=== PATIENT | female | born 1990 ===

== ENCOUNTER 2024-06-10 12:38 | Emergency (ER) | payer OTHER, SELFPAY ==
--- NOTE | 2024-06-10 13:11 | ED_ITS ---
HPI - General Adult General Chief complaint: General Medical Stated complaint: Wants to confirm Time Seen by Provider: 06/10/24 12:54 Source: patient Mode of arrival: ambulatory Limitations: no limitations History of Present Illness ED Provider: Flynn MCWILLIAMS HPI narrative: This is a 34-year-old female presenting to the emergency department requesting a test, she had a positive at home ( had a normal [place] and urine test in [place]) and would like to see if it is still postive she thinks shes around 14 weeks. Last menstrual period March 02 2024. Taking vitamins. Reports last week had faint spotting. Denies fevers, chills, chest pain, shortness of breath, nausea, vomiting, abdominal pain, abdominal trauma, vaginal bleeding at this time. Related Data Allergies Allergy/AdvReac Type Severity Reaction Status Date / Time No Known Allergies Allergy Verified 06/10/24 13:23 Review of Systems 2 Review of Systems: Yes all other systems are reviewed and are negative [facility] Past Medical History Attestation statement: The following information was validated with the patient. Source: old records reviewed and nursing notes reviewed Social History Social History Advance Directives: No Do you have a plan to hurt others: No Plan Physical Exam ED Vital Signs: Vital Signs - 24 hr 06/10/24 13:21 Temperature 98.0 F Pulse Rate 110 H Respiratory Rate 18 Blood Pressure 150/98 H Pulse Oximetry 98 Oxygen Delivery Method Room Air BMI result Body Mass Index 44.9 vss Appearance: Alert.? Oriented X3.? No acute distress.? Head: Normocephalic, atraumatic, no step-offs or deformities Eyes: Pupils equal, round and reactive to light.? CVS: Normal heart rate and rhythm.? Pulses normal.? Respiratory: No respiratory distress.? Breath sounds normal.? Abdomen: Soft and nontender.? Skin: Skin warm and dry.? Normal skin color.? Normal skin turgor.? Extremities: No lower extremity edema.? No calf ttp. 5/5 strength to bilateral upper and lower extremities Neuro: Oriented X 3.? No motor deficit.? No sensory deficit. Course Reevaluation(s) Reevaluation #1: hCG within appropriate range. No abd pain or ttp. No bleeding att. No indication for emergent imaging. To be seen by OBGYN. Time: 15:22 Medical Decision Making Medical Decision Making [facility] Narrative: 1311 34-year-old female presents to the emergency room wanting to confirm . Physical exam benign History and physical exam concerning for . Unlikely metabolic derangements. No bleeding or pain at this time low suspicion for miscarriage. Plan basic labs, hCG Differential Diagnosis Differential Diagnoses: The differential diagnosis associated with the presentation includes History and physical exam concerning for . Unlikely metabolic derangements. No bleeding or pain at this time low suspicion for miscarriage Admission/Observation Consideration of admission/observation: Escalation of care including admission/observation considered Lab Data [facility] Lab Attestation statement: I reviewed the patient's lab results. 06/10/24 13:37 06/10/24 13:37 Labs: Lab Results 06/10/24 Range/Units 13:37 WBC 8.5 (4.8-10.8) X10*3/uL RBC 4.93 (4.20-5.50) X10*6/uL Hgb 13.4 (12.0-16.0) g/dl Hct 39.9 (37.0-47.0) % MCV 80.9 (80.0-98.0) fL MCH 27.2 (27.0-33.0) pg MCHC 33.6 (31.0-35.0) g/dl RDW 13.3 (11.0-16.0) % Plt Count 298 (160-400) X10*3/uL MPV 10.8 (9.4-12.3) fL Immature Gran % (Auto) 0.5 H (0.0-0.4) % Neut % (Auto) 66.8 (45-73) % Lymph % (Auto) 20.6 (20-40) % [place] % (Auto) 8.8 (2-11) % Eos % (Auto) 2.8 (0-4) % Baso % (Auto) 0.5 (0-2) % Lymph # (Auto) 1.8 (1.2-4.9) X10*3/uL [place] # (Auto) 0.8 (0.1-1.2) X10*3/uL Eos # (Auto) 0.2 (0.0-0.4) X10*3/uL Baso # (Auto) 0.0 (0.0-0.2) X10*3/uL Abs Immat Gran (auto) 0.04 H (0.00-0.03) X10*3/uL Absolute Neuts (auto) 5.7 (2.0-8.3) x10*3/uL Absolute Nucleated RBC 0.000 (0.0-0.012) X10*3/uL Nucleated RBC % (auto) 0.0 (0.0-0.2) /100WBC Sodium 137 (135-145) mmol/L Potassium 3.9 (3.3-5.1) mmol/L Chloride 106 (96-108) mmol/L Carbon Dioxide 23 (22-29) mmol/L Anion Gap 12 (12-20) BUN 7 L (9-16) mg/dL Creatinine 0.79 (0.5-1.4) mg/dL Estim Creat Clear Calc 121.5 Estimated GFR > 60 Random Glucose 94 (60-115) mg/dL Calcium 10.0 (8.4-10.2) mg/dL Total Bilirubin 0.2 (0.0-1.0) mg/dL AST 20 (5-31) U/L ALT 54 H (0-31) U/L Alkaline Phosphatase 74 (39-117) U/L Total Protein 7.1 (6.5-8.0) g/dL Albumin 4.0 (3.5-5.0) g/dL Beta HCG, Quant 40558 mIU/mL Critical Care Time Critical Care Time Critical Care Time: No Discharge Plan Discharge Clinical Impression: Encounter for test, result positive Patient Disposition: Home, Self-Care Instructions: (ED) Additional Instructions: Take your medications as prescribed. If you were prescribed antibiotics today, it is important that you take your medication to their entirety, do not skip any doses, do not finish them early. Follow-up with your primary care provider this week. Return to the emergency department with new or worsening symptoms. In case of emergency call 911 You need to follow-up with a PCP as soon as possible. Start taking vitamins every day. You can purchase these [id number]. If you are in pain you should only take Tylenol no ibuprofen. You experience pain or vaginal bleeding should come to the emergency department. Referrals: Physician,None [Primary Care Provider] - 2 days Print Language: Lithuanian
[2024-06-10 13:21] VITALS: BP 150/98; PULSE 110; RESP 18; TEMP 36.7; O2SAT 98; BMI 44.9
[2024-06-10 13:52] LABS: MANUAL DIFF FLAG NO
[2024-06-10 13:54] LABS: Basophils Percent Auto 0.5 % (0-2); Eosinophils Absolute Auto 0.2 X10*3/uL (0.0-0.4); Eosinophils Percent Auto 2.8 % (0-4); Hematocrit 39.9 % (37.0-47.0); Hemoglobin 13.4 g/dl (12.0-16.0); Imm Gran Abs Auto 0.04 X10*3/uL (0.00-0.03); Imm Gran Pct Auto 0.5 % (0.0-0.4); Lymphocytes Absolute Auto 1.8 X10*3/uL (1.2-4.9); Lymphocytes Percent Auto 20.6 % (20-40); Mean Corpuscular HGB Conc 33.6 g/dl (31.0-35.0); Mean Corpuscular Hemoglobin 27.2 pg (27.0-33.0); Mean Corpuscular Volume 80.9 fL (80.0-98.0); Mean Platelet Volume 10.8 fL (9.4-12.3); Monocytes Absolute Auto 0.8 X10*3/uL (0.1-1.2); Monocytes Percent Auto 8.8 % (2-11); Neutrophils Absolute Auto 5.7 x10*3/uL (2.0-8.3); Neutrophils Percent Auto 66.8 % (45-73); Platelet Count 298 X10*3/uL (160-400); Red Blood Count 4.93 X10*6/uL (4.20-5.50); Red Cell Distribution Width 13.3 % (11.0-16.0); White Blood Count 8.5 X10*3/uL (4.8-10.8)
[2024-06-10 14:21] LABS: Alanine Aminotransferase 54 U/L (0-31); Alkaline Phosphatase 74 U/L (39-117); Anion Gap 12 (12-20); Aspartate Amino Transferase 20 U/L (5-31); Bilirubin Total 0.2 mg/dL (0.0-1.0); Blood Urea Nitrogen 7 mg/dL (9-16); Carbon Dioxide 23 mmol/L (22-29); Chloride 106 mmol/L (96-108); Creatinine Clr Calc Pharmacy 121.5; Estimated Glomerular Filt Rate > 60; Glucose Random 94 mg/dL (60-115); Potassium 3.9 mmol/L (3.3-5.1); Sodium 137 mmol/L (135-145); Total Protein 7.1 g/dL (6.5-8.0)
[2024-06-10 15:27] VITALS: BP 150/98; PULSE 110; RESP 18; TEMP 36.7; O2SAT 98
== END 2024-06-10 15:28 | disposition home or self-care (01) ==
PROVIDERS: Physician Assistant; Emergency Provider Emergency Medicine Emergency Medical Services
DX: Z32.01 Encounter for pregnancy test, result positive (principal)
CPT/HCPCS: 36415; 80053; 84702; 85025; 99282; 99283

== ENCOUNTER 2024-06-13 10:21 | Outpatient (AMB) | payer OTHER, SELFPAY ==
--- NOTE | 2024-06-13 11:00 | AM.OFFWIN_ITS ---
Intake Vital Signs 06/13/24 11:02 Height 5 ft 3 in Weight 254 lb BMI 45.0 Intake Visit Reasons: EP Referral? (can't see pcp yet) Intake Note: Patient here Allergies No Known Allergies Allergy (Verified 06/10/24 13:23) HPI HPI Comments History of Present Illness Details 34 y/o female patient who [facility] with c/o lower pelvic and abdominal cramping for few days now. Pt is 15 weeks and has not received any prenetal care. Pt asking for [facility] referral today. Review of Systems Const All systems reviewed & are unremarkable except as noted in HPI and below Physical Exam Vital Signs: BMI result Body Mass Index 45.0 Const Orientation/consciousness: patient oriented x3 Resp Effort & Inspection: normal respiratory effort Auscultation: clear to auscultation bilaterally Cardio Heart sounds: S1 normal heart sound present and S2 normal heart sound present Skin General skin exam: no rashes or lesions noted Neuro General: patient oriented x3, gait normal and moves all extremities Psych Speech and movement: Normal speech and movement present Assessment & Plan Assessment & Plan (1) Bilateral lower abdominal cramping: Code(s): R10.31 - Right lower quadrant pain; R10.32 - Left lower quadrant pain Plan: Advised Pt to go [facility] clinic for further evaluation since she is and has not receive any care. Pt agreed, and will have drive her there today. (2) : Code(s): Z34.90 - Encounter for supervision of normal , unspecified, unspecified trimester Qualifiers: Weeks of gestation: 15 weeks Qualified Code(s): Z3A.15 - 15 weeks gestation of Plan: Advised Pt to go [facility] clinic for further evaluation since she is and has not receive any care. Pt agreed, and will have drive her there today. Coding Level of Care Code Est Pt Level 3 (93740) Diagnoses Bilateral lower abdominal cramping R10.31; R10.32 15 weeks gestation of Z3A.15 Weeks of gestation: 15 weeks Time Spent (min) 15
[2024-06-13 11:02] VITALS: BMI 45.0
== END 2024-06-13 11:22 | disposition home or self-care (01) ==
PROVIDERS: Visit Provider Nurse Practitioner Family
DX: R10.31 Right lower quadrant pain (principal); R10.32 Left lower quadrant pain; Z3A.15 15 weeks gestation of pregnancy
CPT/HCPCS: 99051; 99213

== ENCOUNTER 2024-06-19 15:54 | Outpatient (AMB) | payer OTHER, SELFPAY ==
[2024-06-19 15:56] VITALS: BP 144/90; PULSE 118; O2SAT 98; BMI 44.8
--- NOTE | 2024-06-19 15:56 | A.OFFPC_ITS ---
Vital Signs 06/19/24 15:56 Height 5 ft 3 in Weight 253 lb BMI 44.8 BP 144/90 H Blood Pressure Location Lt brachial Position Sitting Pulse 118 H Pulse Source Pulse Oximeter Pulse Oximetry (%) 98 Oxygen Delivery Method Room Air Intake Visit Reasons: requesting obgyn referral 20 weeks Intake Note: Pt doesn't have any anxiety medications with her because she just moved here from [place] due to her being in the . Night Guard Required: No Accompanied by: Self / Same As Patient Allergies No Known Allergies Allergy (Verified 06/19/24 16:12) Medication List - Last Reconciled 06/19/24 by Audrey Olivas PA-C [id number] 3-fat com #1 27-1-300 mg caps PO Tobacco use date assessed: 06/19/24 Dental Screening Dental Screen Date: 06/19/24 Did you have a dental visit in the last 12 months?: Yes Did you have a dental problem in the last 6 months where you did not have access to dental care?: No Was dental information given to patient?: Patient has dentist HPI requesting obgyn referral 20 weeks HPI Details 34-year-old female with no past medical history coming to the office for the 1st time. Patient recently moved here from [place] and is establishing care in our office and is looking to establish care with a power cleaner operator as well. She does have an appointment with [facility] gynecology nex t week to establish care. Today she tells us previously she was on hydralazine was being treated for hypertension while in [place] but has been without her medications for several weeks now. She has always had an issue with elevated blood pressure with no identifiable cause. She is 16 weeks and has no concerns with the at this time. She has been dealing with morning sickness with nausea and vomiting but no other concerns. [facility] Surgical History S/P tonsillectomy H/O knee surgery Family History Other Mental health disorder Social History Housing: Other Housing Other:: Hotel Patient Tobacco Use Status: Never used Tobacco Tobacco use type: Cigarette e-Cigarette/Vaping Use: Never Used Second Hand Smoke Exposure: Yes service: No Current occupational status: unemployed Cognitive needs: No Hearing needs: No Vision needs: Yes Female Reproductive History Menstrual Total pregnancies: 1 Questionnaire PHQ-9 Over the last 2 weeks, how often have you been bothered by any of the following problems? 1. Little interest or pleasure in doing things: not at all 2. Feeling down, depressed, or hopeless: not at all 3. Trouble falling or staying asleep, or sleeping too much: not at all 4. Feeling tired or having little energy: not at all 5. Poor appetite or overeating: not at all 6. Feeling bad about yourself - or that you are a failure or have let yourself or your family down: not at all 7. Trouble concentrating on things, such as reading the newspaper or watching television: not at all 8. Moving or speaking so slowly that other people could have noticed. Or the opposite - being so fidgety or restless that you have been moving around a lot more than usual: not at all 9. Thoughts that you would be better off or of hurting yourself in some way: not at all Total score: 0 Depression Screening Interpretation: Negative Depression Screening Done: Yes Source: Developed by Drs. Kaushik Pina, Phyllis Lilly, Andres Chinchilla and colleagues, with an educational leanna from [employer]. Thrive Questionnaire Date Thrive assessed: 06/19/24 I am a: Patient What is your living situation today?: I do not have a steady places to live (New to the area) I am staying at a hotel Are you currently unemployed and looking for a job?: Yes THRIVE Score: 1 AUDIT C Alcohol Use Questionnaire (AUDIT-C) 1. How often do you have a drink containing alcohol?: Never 3. How often do you have six or more drinks on one occasion?: Never Total Score: 0 CARLOS-7 AMB Questionnaire CARLOS-7 Date CARLOS - 7 assessed: 06/19/24 Feeling nervous, anxious, or on edge: 1 = Several days (Stressed) Not being able to stop or control worryin = Not at all Worrying too much about different things: 0 = Not at all Trouble relaxin = Not at all Being so restless that it is hard to sit still: 0 = Not at all Becoming easily annoyed or irritable: 0 = Not at all Feeling afraid as if something awful might happen: 0 = Not at all Total CARLOS-7 score (0-4 normal; 5-9 mild; 10-14 moderate; 15-21 severe): 1 Source: Developed by Drs. Kaushik Pina, Phyllis Lilly, Andres Chinchilla and colleagues, with an educational leanna from [employer]. Review of Systems Const Denies body aches, Denies fatigue, Denies fever(s), Denies frequent falls, Denies headache(s) and Denies weakness Eyes Reports no additional complaints and Denies change in vision ENT Denies dysphagia, Denies dizziness, Denies facial pain, Denies headache(s), Denies nasal congestion and Denies odynophagia Card Denies chest pain, Denies syncope, Denies irregular heart rhythm, Denies leg edema, Denies lightheadedness and Denies dyspnea Resp Denies cough and Denies dyspnea GI Denies abdominal pain, Denies constipation, Denies dysphagia, Denies dyspepsia, Denies diarrhea, Reports nausea, Denies odynophagia and Reports vomiting Denies urinary frequency, Denies dysuria, Denies urinary hesitancy and Denies urinary urgency Musc Denies back pain and Denies myalgias Skin/Breast Reports system reviewed and no additional complaints, except as documented Neuro Denies dizziness, Denies syncope, Denies frequent falls, Denies headache(s) and Denies weakness Psych Reports no additional complaints Endo Denies fatigue Physical exam (Primary Care) Vital Signs: Last Vital Signs Pulse 118 H 06/19/24 15:56 BP 144/90 H 06/19/24 15:56 Pulse Ox 98 06/19/24 15:56 Oxygen Delivery Method Room Air 06/19/24 15:56 BMI result Body Mass Index 44.8 Tobacco/Smoking Status: Tobacco use Status Tobacco use date assessed 06/19/24 06/19/24 16:06 Patient Tobacco Use Status Never used Tobacco 06/19/24 16:06 Tobacco use type Cigarette 06/19/24 16:06 e-Cigarette/Vaping Use Never Used 06/19/24 16:06 PHQ-9: PHQ-9 Score PHQ-9: Total score 0 06/19/24 16:11 Depression Screening Interpretation: Negative Thrive Assessment: Date of Thrive Assessment Date Thrive assessed 06/19/24 06/19/24 16:06 Const General: cooperative, healthy appearing, comfortable and no acute distress Orientation/consciousness: patient oriented x3 HENMT Head: Yes normocephalic Ears: hearing grossly normal bilaterally General nose exam: Normal external nose present Eyes General: appearance normal, both eyes and all related structures Conjunctivae: conjunctivae normal Neck Neck: Yes full ROM and Yes no lymphadenopathy Resp Effort & Inspection: normal respiratory effort Auscultation: clear to auscultation bilaterally, no crackles, no rales, no rhonchi and no wheezes Cardio Rate: regular rate Rhythm: regular rhythm Skin General skin exam: no rashes or lesions noted Neuro General: patient oriented x3 Gait exam (Neuro): Normal gait present Extrem General: Yes normal to inspection, Yes full ROM and No edema Psych Affect: normal affect Attitude: cooperative Insight: Good insight present (Psych) Judgement: Good judgement present (Psych) Assessment and Plan Assessment & Plan (1) and not yet delivered: Code(s): Z34.90 - Encounter for supervision of normal , unspecified, unspecified trimester Plan: Advised patient to follow up with [facility] Gynecology as soon as possible to establish care. She did have a routine ultrasound at 9 weeks while in [place] and we do not have these results. (2) PCOS (polycystic ovarian syndrome): Code(s): E28.2 - Polycystic ovarian syndrome Plan: Continue to follow with gynecology. (3) Hypertension: Code(s): I10 - Essential (primary) hypertension Plan: Patient has history of hypertension was previously being treated with hydralazine 10 mg. Hypertensive while in the office today 144/90 and 140/90 when retaken. Prescription for hydralazine 10 mg sent as this is a safe medication during . We will defer to gynecology for further management throughout her once she has established care. Follow up in 3 weeks for blood pressure check. (4) Anxiety: Code(s): F41.9 - Anxiety disorder, unspecified Plan: Has a history of anxiety and was previously treated with fluoxetine but would like to discontinue this medication during the . Advised patient counseling but has declined at this time. Plan This note was constructed using voice recognition software. While every effort has been made to ensure accuracy and sub acute care nurse, still areas may have been included sometimes these areas may affect the content or meeting of the given symptoms. Total time spent caring for the patient today was 30 minutes. This includes time spent before the visit reviewing the chart, time spent during the visit, and time spent after the visit and documentation. Orders: Referrals NIB FINISHER Referral Z34.90 - Encounter for supervision of normal , unspecified, unspecified trimester Medications: New hydralazine 10 mg PO ONCE 30 tabs 2RF Coding Level of Care Code New Pt Level 4 (73258) Diagnoses and not yet delivered Z34.90 PCOS (polycystic ovarian syndrome) E28.2 Hypertension I10 Anxiety F41.9
== END 2024-06-19 16:39 | disposition home or self-care (01) ==
DX: Z34.90 Encounter for supervision of normal pregnancy, unspecified, unspecified trimester (principal); E28.2 Polycystic ovarian syndrome; I10 Essential (primary) hypertension; F41.9 Anxiety disorder, unspecified

== ENCOUNTER → 2024-06-19 15:54 | Outpatient (BNVA) | payer OTHER, SELFPAY | DX: O16.2 Unspecified maternal hypertension, second trimester (principal); Z3A.20 20 weeks gestation of pregnancy; O26.892 Other specified pregnancy related conditions, second trimester; E28.2 Polycystic ovarian syndrome; F41.9 Anxiety disorder, unspecified | CPT/HCPCS: 99202 ==

== ENCOUNTER 2024-07-10 14:50 | Outpatient (AMB) | payer OTHER, SELFPAY ==
[2024-07-10 14:51] VITALS: BP 154/98; PULSE 116; O2SAT 98; BMI 44.3
--- NOTE | 2024-07-10 14:51 | A.OFFPC_ITS ---
Vital Signs 07/10/24 14:51 Height 5 ft 3 in Weight 250 lb BMI 44.3 BP 154/98 H Blood Pressure Location Lt brachial Position Sitting Pulse 116 H Pulse Source Pulse Oximeter Pulse Oximetry (%) 98 Oxygen Delivery Method Room Air Intake Visit Reasons: Physical Exam Intake Note: Patient is here today for a physical. 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 Allergies No Known Allergies Allergy (Verified 07/10/24 15:07) Medication List - Last Reconciled 07/10/24 by Audrey Olivas PA-C fluoxetine 10 mg PO DAILY nifedipine ER 30 mg PO DAILY ondansetron 4 mg PO Q8H [id number] 3-fat com #1 27-1-300 mg caps PO Tobacco use date assessed: 06/19/24 Dental Screening Dental Screen Date: 06/19/24 Did you have a dental visit in the last 12 months?: Yes Did you have a dental problem in the last 6 months where you did not have access to dental care?: No Was dental information given to patient?: Patient has dentist HPI Physical Exam HPI Details 34 year old female with past history of PCOS, anxiety and hypertension last seen May 2024 coming in for annual exam. Patient is 19 weeks and following with [facility]. She has been following with [facility] who recently changed her blood pressure medication to nifedipine and has been using baby scripts to monitor her blood pressure. All values have been normal and has had several telehealth with her OB to address these blood pressures. She has a appointment next week for her 20 week ultrasound. She has been having issues with nausea and vomiting and was given Zofran by OB. She has no other concerns today. [facility] Surgical History S/P tonsillectomy H/O knee surgery Family History Other Mental health disorder Social History Housing: Other Housing Other:: Hotel Patient Tobacco Use Status: Never used Tobacco Tobacco use type: Cigarette e-Cigarette/Vaping Use: Never Used Second Hand Smoke Exposure: Yes service: No Current occupational status: unemployed Cognitive needs: No Hearing needs: No Vision needs: Yes Questionnaire PHQ-9 Over the last 2 weeks, how often have you been bothered by any of the following problems? 1. Little interest or pleasure in doing things: not at all 2. Feeling down, depressed, or hopeless: not at all 3. Trouble falling or staying asleep, or sleeping too much: several days 4. Feeling tired or having little energy: several days 5. Poor appetite or overeating: several days 6. Feeling bad about yourself - or that you are a failure or have let yourself or your family down: not at all 7. Trouble concentrating on things, such as reading the newspaper or watching television: not at all 8. Moving or speaking so slowly that other people could have noticed. Or the opposite - being so fidgety or restless that you have been moving around a lot more than usual: not at all 9. Thoughts that you would be better off or of hurting yourself in some way: not at all Total score: 3 Depression Screening Interpretation: Negative Depression Screening Done: Yes 79939 - PHQ-9 Billing: Yes Source: Developed by Drs. Kaushik Pina, Phyllis Lilly, Andres Chinchilla and colleagues, with an educational leanna from [employer]. Thrive Questionnaire Date Thrive assessed: 06/19/24 I am a: Patient What is your living situation today?: I choose not to answer this question Within the past 12 months, did the food you bought not last and you didn't have the money to get more?: Never true Within the past 12 months, did you worry whether your food would run out before you got money to buy more?: Never true Do you have trouble paying for medicines?: No Do you have trouble getting transportation to medical appointments?: No Do you have trouble paying your heating and electricity bill?: No Do you have trouble taking care of your child, family member or friend?: No Do you have trouble with day-to-day activities such as bathing, preparing meals, shopping, managing finances, etc.?: No Are you interested in more education?: No Please select the resources that you would like help with: None Currently or been in a relationship where the following occur: No concerns reported THRIVE Score: 0 AUDIT C Alcohol Use Questionnaire (AUDIT-C) 1. How often do you have a drink containing alcohol?: Never 3. How often do you have six or more drinks on one occasion?: Never Total Score: 0 CARLOS-7 AMB Questionnaire CARLOS-7 Date CARLOS - 7 assessed: 06/19/24 Feeling nervous, anxious, or on edge: 1 = Several days Not being able to stop or control worryin = Not at all Worrying too much about different things: 1 = Several days Trouble relaxin = Not at all Being so restless that it is hard to sit still: 1 = Several days Becoming easily annoyed or irritable: 0 = Not at all Feeling afraid as if something awful might happen: 0 = Not at all Total CARLOS-7 score (0-4 normal; 5-9 mild; 10-14 moderate; 15-21 severe): 3 Source: Developed by Drs. Kaushik Pina, Phyllis Lilly, Andres Chinchilla and colleagues, with an educational leanna from [employer]. CARLOS-7 Assessment Billing CARLOS-7 Assessment Tool: CARLOS-7 Assessment 42733 Review of Systems Const Denies body aches, Denies fatigue, Denies fever(s), Denies frequent falls, Denies headache(s) and Denies weakness Eyes Reports no additional complaints and Denies change in vision ENT Denies dysphagia, Denies dizziness, Denies facial pain, Denies headache(s), Denies nasal congestion and Denies odynophagia Card Denies chest pain, Denies syncope, Denies leg edema, Denies lightheadedness and Denies dyspnea Resp Denies cough and Denies dyspnea GI Denies abdominal pain, Denies constipation, Denies dysphagia, Denies dyspepsia, Denies diarrhea, Reports nausea, Denies odynophagia and Reports vomiting Denies urinary frequency, Denies dysuria, Denies urinary hesitancy and Denies urinary urgency Musc Reports back pain and Denies myalgias Skin/Breast Reports system reviewed and no additional complaints, except as documented Neuro Denies dizziness, Denies syncope, Denies frequent falls, Denies headache(s) and Denies weakness Psych Reports no additional complaints Endo Denies fatigue Physical exam (Primary Care) Vital Signs: Last Vital Signs Pulse 116 H 07/10/24 14:51 BP 154/98 H 07/10/24 14:51 Pulse Ox 98 07/10/24 14:51 Oxygen Delivery Method Room Air 07/10/24 14:51 BMI result Body Mass Index 44.3 Tobacco/Smoking Status: Tobacco use Status Tobacco use date assessed 06/19/24 07/10/24 14:58 Patient Tobacco Use Status Never used Tobacco 07/10/24 14:58 Tobacco use type Cigarette 07/10/24 14:58 e-Cigarette/Vaping Use Never Used 07/10/24 14:58 PHQ-9: PHQ-9 Score PHQ-9: Total score 3 07/10/24 15:03 Depression Screening Interpretation: Negative Thrive Assessment: Date of Thrive Assessment Date Thrive assessed 06/19/24 07/10/24 14:58 Currently or been in a relationship where the following occur: No concerns reported Const General: cooperative, healthy appearing, comfortable and no acute distress Orientation/consciousness: patient oriented x3 HENMT Head: Yes normocephalic Ears: hearing grossly normal bilaterally, external ears normal, TM's normal bilaterally and EAC's normal General nose exam: Normal external nose present Face and sinus: Yes normal facial exam and Yes sinuses nontender Mouth: Normal oral and palatal mucosa present and tongue normal Throat: Yes posterior oropharynx normal Eyes General: appearance normal, both eyes and all related structures Conjunctivae: conjunctivae normal Pupils: Equal, round and reactive pupils present EOM: EOMs intact bilaterally and No Nystagmus present Neck Neck: Yes normal visual inspection, Yes full ROM and Yes no lymphadenopathy Chest Chest palpation & inspection: normal inspection of the chest Resp Effort & Inspection: normal respiratory effort Auscultation: clear to auscultation bilaterally, no crackles, no rales, no rhonchi, no wheezes and breath sounds present Cardio Rate: regular rate Rhythm: regular rhythm Peripheral pulses: radial pulses present and dorsalis pedis present GI Inspection: Yes normal to inspection and No Abdominal wall edema Palpation (GI): Soft to palpation, not firm and nontender Auscultation: normal bowel sounds Rectal Exam - Female: deferred General: Yes no CVA tenderness Back/Spine/Pelvis Back: no CVA tenderness Skin General skin exam: no rashes or lesions noted Neuro General: patient oriented x3 Cranial nerves: Yes Equal, round and reactive pupils present, Yes Midline tongue present, Yes Ability to bilaterally elevate shoulders present and No Nystagmus present Gait exam (Neuro): Normal gait present Extrem General: Yes normal to inspection, Yes full ROM, No no pedal edema and No edema Psych Speech and movement: Normal speech and movement present Affect: normal affect Insight: Good insight present (Psych) Judgement: Good judgement present (Psych) Office Procedures Flu Questionnaire Does the patient have a severe egg allergy?: No Does the patient have severe life threatening allergies?: No Does the patient have a fever or illness today?: No Has the patient ever had Guillain-[place] Syndrome?: No Has the patient ever had any past reaction to a flu shot?: No Immunizations Fluarix Triv 7685-4329 (PF) 45 mcg (15 mcg x 3)/0.5 mL IM syringe Performing Provider: Audrey Olivas PA-C [facility] Administered by: ABRIL Sanchez on 07/10/24 14:58 Dose Route Admin Location Dispensed Lot Number Expiration Date FORMERLY NAMED [facility] [employer] 0.5 mL IM Left Deltoid 0.5 mL [id number] 03/29/25 [id number] [employer] VIS Given Date VIS Provided VIS Publication Date 07/10/24 Single Vaccine 21 Eligibility Eligibility Date Funding Source Not [facility] Eligible 07/10/24 Private Coding Level of Care Code Est Pt Prev Care 18-39y([id number]) Diagnoses Allergy to dog dander J30.81 and not yet delivered Z34.90 Anxiety F41.9 PCOS (polycystic ovarian syndrome) E28.2 Hypertension I10 Annual physical exam Z00.00 Additional Codes CARLOS-7 Assessment Billing - CARLOS-7 Assessment Tool: CARLOS-7 Assessment 11263 ([id number]) Assessment & Plan Assessment & Plan (1) Allergy to dog dander: Code(s): J30.81 - Allergic rhinitis due to animal (cat) (dog) hair and dander Category: Medical Plan: Patient would like to try allergy shots and referral placed to [facility] today. (2) and not yet delivered: Code(s): Z34.90 - Encounter for supervision of normal , unspecified, unspecified trimester Category: Medical Plan: Continue to follow with [facility] for monitoring through . OB primarily managing blood pressures at this time. (3) Anxiety: Code(s): F41.9 - Anxiety disorder, unspecified Category: Medical Plan: Patient is started on fluoxetine by OB for management of anxiety. Declines referral for counselor at this time. (4) PCOS (polycystic ovarian syndrome): Code(s): E28.2 - Polycystic ovarian syndrome Category: Medical Plan: Continue to follow with gynecology. (5) Hypertension: Code(s): I10 - Essential (primary) hypertension Category: Medical Plan: Continue on current blood pressure medication. Avoid salt intake and encourage healthy diet and regular exercise. OB primarily managing the blood pressure at this time through baby scripts. We will take over management after delivery. Blood pressure mildly elevated while in the office today however home pressures have been normal. (6) Annual physical exam: Code(s): Z00.00 - Encounter for general adult medical examination without abnormal findings Category: Medical Plan: Patient is up-to-date on all recommended routine screenings and vaccinations for her age. Follow up in 1 year or sooner if new problems arise. Plan This note was constructed using voice recognition software. While every effort has been made to ensure accuracy and civil project engineer, still areas may have been included sometimes these areas may affect the content or meeting of the given symptoms. Total time spent caring for the patient today was 30 minutes. This includes time spent before the visit reviewing the chart, time spent during the visit, and time spent after the visit and documentation. Orders: Orders Influenza [id number] Immunization Today Z23 - Encounter for immunization Referrals Allergy & Immunology Referral J30.81 - Allergic rhinitis due to animal (cat) (dog) hair and dander
== END 2024-07-10 15:20 | disposition home or self-care (01) ==
DX: J30.81 Allergic rhinitis due to animal (cat) (dog) hair and dander (principal); Z34.90 Encounter for supervision of normal pregnancy, unspecified, unspecified trimester; F41.9 Anxiety disorder, unspecified; E28.2 Polycystic ovarian syndrome; I10 Essential (primary) hypertension; Z00.00 Encounter for general adult medical examination without abnormal findings; Z23 Encounter for immunization

== ENCOUNTER → 2024-07-10 14:50 | Outpatient (BNVA) | payer OTHER, SELFPAY | DX: Z00.00 Encounter for general adult medical examination without abnormal findings (principal); Z23 Encounter for immunization; E78.2 Mixed hyperlipidemia; F41.9 Anxiety disorder, unspecified; I10 Essential (primary) hypertension; J30.81 Allergic rhinitis due to animal (cat) (dog) hair and dander | CPT/HCPCS: 90471; 90656; 96127 ==

== ENCOUNTER 2025-07-19 15:06 | Outpatient (AMB) | payer OTHER, SELFPAY ==
--- NOTE | 2025-07-19 15:12 | A.OFFPC_ITS ---
Vital Signs 07/19/25 15:13 Height 5 ft 3 in Weight 244 lb 8 oz BMI 43.3 BP 148/90 H Blood Pressure Location Lt brachial Position Sitting Pulse 106 H Pulse Source Pulse Oximeter Temp 97.3 F Temp Source Temporal Artery Scan Pulse Oximetry (%) 100 Oxygen Delivery Method Room Air Intake Visit Reasons: annual exam Allergies No Known Allergies Allergy (Verified 07/19/25 15:21) Medication List - Last Reconciled 07/19/25 by Audrey Olivas PA-C nifedipine ER 30 mg PO DAILY Tobacco use date assessed: 07/19/25 Dental Screening Dental Screen Date: 07/19/25 Did you have a dental visit in the last 12 months?: Yes Did you have a dental problem in the last 6 months where you did not have access to dental care?: No Was dental information given to patient?: Patient has dentist HPI annual exam HPI Details 34 year old female with past history of PCOS, anxiety and hypertension last seen 06/2024 coming in for annual exam. Presenting with abdominal pain and cramping radiating to the chest and right shoulder. Reports severe abdominal cramping radiating to the chest and right shoulder, occurring intermittently since October. The most recent episode was last week. Associated symptoms include nausea, vomiting, and diarrhea, with episodes lasting from minutes to hours. Initially thought greasy foods were triggers, but now symptoms occur after various foods, including salmon and s alad. History of hypertension, previously managed with nifedipine, which she ran out of and requires a refill. She gave 10/2024 with a boy Naun. Pap smear: UTD through [facility] Vaccinations: UTD and given flu shot today PFSH Surgical History S/P tonsillectomy H/O knee surgery Family History Other Mental health disorder Social History Housing: Other Housing Other:: Hotel Patient Tobacco Use Status: Never used Tobacco Tobacco use type: Cigarette e-Cigarette/Vaping Use: Never Used Second Hand Smoke Exposure: Yes service: No Current occupational status: unemployed Cognitive needs: No Hearing needs: No Vision needs: Yes Questionnaire PHQ-9 Over the last 2 weeks, how often have you been bothered by any of the following problems? 1. Little interest or pleasure in doing things: not at all 2. Feeling down, depressed, or hopeless: not at all 3. Trouble falling or staying asleep, or sleeping too much: several days 4. Feeling tired or having little energy: nearly every day 5. Poor appetite or overeating: not at all 6. Feeling bad about yourself - or that you are a failure or have let yourself or your family down: not at all 7. Trouble concentrating on things, such as reading the newspaper or watching television: not at all 8. Moving or speaking so slowly that other people could have noticed. Or the opposite - being so fidgety or restless that you have been moving around a lot m ore than usual: not at all 9. Thoughts that you would be better off or of hurting yourself in some way: not at all Total score: 4 Depression Screening Interpretation: Negative Depression Screening Done: Yes 17140 - PHQ-9 Billing: Yes Source: Developed by Drs. Kaushik Pina, Phyllis Lilly, Andres Chinchilla and colleagues, with an educational leanna from [employer]. Thrive Questionnaire Date Thrive assessed: 07/18/25 I am a: Patient What is your living situation today?: I have a steady place to live Within the past 12 months, did the food you bought not last and you didn't have the money to get more?: Never true Within the past 12 months, did you worry whether your food would run out before you got money to buy more?: Never true Do you have trouble paying for medicines?: No Do you have trouble getting transportation to medical appointments?: No Do you have trouble paying your heating and electricity bill?: No Do you have trouble taking care of your child, family member or friend?: No Do you have trouble with day-to-day activities such as bathing, preparing meals, shopping, managing finances, etc.?: No Are you currently unemployed and looking for a job?: No Are you interested in more education?: No Please select the resources that you would like help with: None Currently or been in a relationship where the following occur: No concerns reported THRIVE Score: 0 AUDIT C Alcohol Use Questionnaire (AUDIT-C) 1. How often do you have a drink containing alcohol?: Never 3. How often do you have six or more drinks on one occasion?: Never Total Score: 0 CARLOS-7 AMB Questionnaire CARLOS-7 Date CARLOS - 7 assessed: 07/19/25 Feeling nervous, anxious, or on edge: 1 = Several days Not being able to stop or control worryin = Not at all Worrying too much about different things: 0 = Not at all Trouble relaxin = Several days Being so restless that it is hard to sit still: 0 = Not at all Becoming easily annoyed or irritable: 1 = Several days Feeling afraid as if something awful might happen: 0 = Not at all Total CARLOS-7 score (0-4 normal; 5-9 mild; 10-14 moderate; 15-21 severe): 3 Source: Developed by Drs. Kaushik Pina, Phyllis Lilly, Andres Chinchilla and colleagues, with an educational leanna from [employer]. CARLOS-7 Assessment Billing CARLOS-7 Assessment Tool: CARLOS-7 Assessment 81578 Review of Systems Const Denies body aches, Denies fatigue, Denies fever(s), Denies frequent falls, Denies headache(s) and Denies weakness Eyes Reports no additional complaints and Denies change in vision ENT Denies dysphagia, Denies dizziness, Denies facial pain, Denies headache(s), Denies nasal congestion and Denies odynophagia Card Denies chest pain, Denies syncope, Denies irregular heart rhythm, Denies leg edema, Denies lightheadedness and Denies dyspnea Resp Denies cough and Denies dyspnea GI Reports as per HPI, Reports abdominal pain, Denies constipation, Denies dysphagia, Reports dyspepsia, Reports heartburn, Denies diarrhea, Reports nausea, Denies odynophagia and Reports vomiting Denies urinary frequency, Denies dysuria, Denies urinary hesitancy and Denies urinary urgency Musc Denies back pain and Denies myalgias Skin/Breast Reports system reviewed and no additional complaints, except as documented Neuro Denies dizziness, Denies syncope, Denies frequent falls, Denies headache(s) and Denies weakness Psych Reports no additional complaints Endo Denies fatigue Physical exam (Primary Care) Vital Signs: Last Vital Signs Temp 97.3 F 07/19/25 15:13 Pulse 106 H 07/19/25 15:13 BP 148/90 H 07/19/25 15:13 Pulse Ox 100 07/19/25 15:13 Oxygen Delivery Method Room Air 07/19/25 15:13 BMI result Body Mass Index 43.3 Tobacco/Smoking Status: Tobacco use Status Tobacco use date assessed 07/19/25 07/19/25 15:16 Patient Tobacco Use Status Never used Tobacco 07/19/25 15:16 Tobacco use type Cigarette 07/19/25 15:16 e-Cigarette/Vaping Use Never Used 07/19/25 15:16 PHQ-9: PHQ-9 Score PHQ-9: Total score 4 07/19/25 15:55 Depression Screening Interpretation: Negative Thrive Assessment: Date of Thrive Assessment Date Thrive assessed 07/18/25 07/19/25 15:16 Currently or been in a relationship where the following occur: No concerns reported Const General: cooperative, healthy appearing, comfortable and no acute distress Orientation/consciousness: patient oriented x3 HENMT Head: Yes normocephalic Ears: hearing grossly normal bilaterally, external ears normal, TM's normal bilaterally and EAC's normal General nose exam: Normal external nose present Face and sinus: Yes normal facial exam and Yes sinuses nontender Mouth: Normal oral and palatal mucosa present and tongue normal Throat: Yes posterior oropharynx normal Eyes General: appearance normal, both eyes and all related structures Conjunctivae: conjunctivae normal Pupils: Equal, round and reactive pupils present EOM: EOMs intact bilaterally and No Nystagmus present Neck Neck: Yes normal visual inspection, Yes full ROM and Yes no lymphadenopathy Chest Chest palpation & inspection: normal inspection of the chest Resp Effort & Inspection: normal respiratory effort Auscultation: clear to auscultation bilaterally, no crackles, no rales, no rhonchi, no wheezes and breath sounds present Cardio Rate: regular rate Rhythm: regular rhythm Peripheral pulses: radial pulses present and dorsalis pedis present GI Inspection: Yes normal to inspection and No Abdominal wall edema Palpation (GI): Soft to palpation, not firm and nontender Auscultation: normal bowel sounds Rectal Exam - Female: deferred General: Yes no CVA tenderness Back/Spine/Pelvis Back: no CVA tenderness Skin General skin exam: no rashes or lesions noted Neuro General: patient oriented x3 Cranial nerves: Yes Equal, round and reactive pupils present, Yes Midline tongue present, Yes Ability to bilaterally elevate shoulders present and No Nystagmus present Gait exam (Neuro): Normal gait present Extrem General: Yes normal to inspection, Yes full ROM, No no pedal edema and No edema Psych Speech and movement: Normal speech and movement present Affect: normal affect Insight: Good insight present (Psych) Judgement: Good judgement present (Psych) Office Procedures Flu Questionnaire Does the patient have a severe egg allergy?: No Does the patient have severe life threatening allergies?: No Does the patient have a fever or illness today?: No Has the patient ever had Guillain-[place] Syndrome?: No Has the patient ever had any past reaction to a flu shot?: No Immunizations Fluarix [id number] (PF) 45 mcg (15 mcg x 3)/0.5 mL IM syringe Performing Provider: Audrey Olivas PA-C [place] [facility] [facility] Administered by: ABRIL Stafford on 07/19/25 15:56 Dose Route Admin Location Dispensed Lot Number Expiration Date NDC Rfid Strategist 0.5 mL IM Left Deltoid 0.5 mL [id number] 03/29/26 75975-960-59 Story[employer] VIS Given Date VIS Provided VIS Publication Date 07/19/25 Single Vaccine 24 Eligibility Eligibility Date Funding Source Not [facility] Eligible 07/19/25 Private Coding Level of Care Code Est Pt Prev Care 18-39y(47070) Diagnoses Annual physical exam Z00.00 Hypertension I10 Anxiety F41.9 PCOS (polycystic ovarian syndrome) E28.2 Intermittent abdominal pain R10.9 Additional Codes CARLOS-7 Assessment Billing - CARLOS-7 Assessment Tool: CARLOS-7 Assessment 95732 ([id number]) PHQ-9 - 01920 - PHQ-9 Billing: Yes ([id number]) Assessment & Plan Assessment & Plan (1) Annual physical exam: Code(s): Z00.00 - Encounter for general adult medical examination without abnormal findings Category: Medical Plan: Patient is up to date on all recommended routine screenings and vaccinations for her age. Healthy diet and regular exercise is encouraged. Plan to order for upd ated blood work. (2) Hypertension: Code(s): I10 - Essential (primary) hypertension Category: Medical Plan: Blood pressure not controlled in the office today however she has not been on the Nifedipine. Rx sent and plan to restart and follow up in 2 months. she will monitor the blood pressure at home as well. (3) Anxiety: Code(s): F41.9 - Anxiety disorder, unspecified Category: Medical Plan: Denies any symptoms at this time. (4) PCOS (polycystic ovarian syndrome): Code(s): E28.2 - Polycystic ovarian syndrome Category: Medical Plan: She will continue to follow up with behavioral health consultant through [facility] [place]. (5) Intermittent abdominal pain: Code(s): R10.9 - Unspecified abdominal pain Category: Medical Plan: Concern for possible acid reflux and given reflux diet. Concern also possibly for gallbladder etiology. Plan for abdominal US for further evaluation. she will also keep a journal of her symptoms and bring this to the next visit. Reviewed red flag symptoms and when to present for re-evaluation. Plan This note was constructed using voice recognition software. While every effort has been made to ensure accuracy and silver service waiter, still areas may have been included sometimes these areas may affect the content or meeting of the given symptoms. Total time spent caring for the patient today was 30 minutes. This includes time spent before the visit reviewing the chart, time spent during the visit, and time spent after the visit and documentation. Patient was informed and verbally consented to the use of an ambient scribe for clinic note documentation during this visit. Orders: Orders US abdomen complete Today R10.9 - Unspecified abdominal pain Influenza [id number] Immunization Today Z23 - Encounter for immunization TSH reflex Free T4 Today Z13.29 - Encounter for screening for other suspected endocrine disorder Vitamin B12 and Folate Today Z13.21 - Encounter for screening for nutritional disorder Vitamin D 25-OH Total Today Z13.21 - Encounter for screening for nutritional disorder Lipid Panel Today Z13.220 - Encounter for screening for lipoid disorders Comprehensive Met. Panel Today R10.9 - Unspecified abdominal pain, Z00.00 - Encounter for general adult medical examination without abnormal findings Complete Blood Count Auto Diff Today R10.9 - Unspecified abdominal pain, Z13.0 - Encounter for screening for diseases of the blood and blood-forming organs and certain disorders involving the immune mechanism Medications: New nifedipine ER 30 mg PO DAILY 90 tabs 0RF
[2025-07-19 15:13] VITALS: BP 148/90; PULSE 106; TEMP 36.3; O2SAT 100; BMI 43.3
== END 2025-07-19 16:03 | disposition home or self-care (01) ==
LOC: HO.HMCH 15:07
DX: Z00.00 Encounter for general adult medical examination without abnormal findings (principal); I10 Essential (primary) hypertension; F41.9 Anxiety disorder, unspecified; E28.2 Polycystic ovarian syndrome; R10.9 Unspecified abdominal pain; Z23 Encounter for immunization

== ENCOUNTER → 2025-07-19 15:06 | Outpatient (BNVA) | payer OTHER, SELFPAY | DX: Z00.00 Encounter for general adult medical examination without abnormal findings (principal); I10 Essential (primary) hypertension; F41.9 Anxiety disorder, unspecified; R07.9 Chest pain, unspecified; M25.511 Pain in right shoulder; R10.9 Unspecified abdominal pain; E28.2 Polycystic ovarian syndrome; Z23 Encounter for immunization | CPT/HCPCS: 90471; 90656; 96127 ==

== ENCOUNTER 2025-09-09 08:57 | Outpatient (REF) | payer OTHER, SELFPAY ==
--- NOTE | ~2025-09-09 | US_ITS ---
CLINICAL HISTORY: R10.9 - Unspecified abdominal pain US abdomen complete Comparison: None provided Findings: The visualized pancreas is normal. The aorta and inferior vena cava are normal caliber. The liver is normal in size with increased echogenicity. The liver measures 16.9 cm in length. There is no intrahepatic bile duct dilatation. The common duct is 3 mm in diameter. The gallbladder is nondilated containing multiple shadowing stones. The wall is not thickened. Negative sonographic Randall's sign. The main portal vein is antegrade. The right kidney is 10.2 cm in length. The left kidney is 10.1 cm in length. The spleen is normal. No ascites. IMPRESSION: 1. Mild hepatic steatosis with top-normal hepatic size. 2. Cholelithiasis without findings of acute cholecystitis. This document has been electronically signed by: Sharon Canas MD on 09/10/2025 09:09:50
[2025-09-09 10:22] LABS: MANUAL DIFF FLAG NO
[2025-09-09 10:25] LABS: Hematocrit 42.6 % (37.0-47.0); Hemoglobin 13.9 g/dl (12.0-16.0); Imm Gran Abs Auto 0.01 X10*3/uL (0.00-0.03); Imm Gran Pct Auto 0.2 % (0.0-0.4); Lymphocytes Absolute Auto 1.5 X10*3/uL (1.2-4.9); Mean Corpuscular HGB Conc 32.6 g/dl (31.0-35.0); Mean Corpuscular Hemoglobin 26.8 pg (27.0-33.0); Mean Corpuscular Volume 82.2 fL (80.0-98.0); NRBC Abs Auto 0.000 X10*3/uL (0.0-0.012); NRBC Pct Auto 0.0 /100WBC (0.0-0.2); Platelet Count 283 X10*3/uL (160-400); Red Blood Count 5.18 X10*6/uL (4.20-5.50); White Blood Count 4.7 X10*3/uL (4.8-10.8)
[2025-09-09 11:27] LABS: Alanine Aminotransferase 39 U/L (0-31); Albumin Level 4.3 g/dL (3.5-5.0); Alkaline Phosphatase 62 U/L (39-117); Anion Gap 10 (12-20); Aspartate Amino Transferase 21 U/L (5-31); Blood Urea Nitrogen 14 mg/dL (9-16); Calcium 9.4 mg/dL (8.4-10.2); Carbon Dioxide 28 mmol/L (22-29); Chloride 108 mmol/L (96-108); Cholesterol 220 mg/dL (<200); Estimated Glomerular Filt Rate > 60; HDL Cholesterol 38 mg/dL (>40); Potassium 4.6 mmol/L (3.3-5.1); Sodium 141 mmol/L (135-145); Total Protein 7.1 g/dL (6.5-8.0); Triglycerides 130 mg/dL (<150)
[2025-09-09 11:41] LABS: Folate 12.8 ng/mL (> or = 4.0); Vitamin B12 497 pg/mL (200-900)
== END 2025-09-09 08:58 | disposition home or self-care (01) ==
LOC: HO.HMGCX 08:57
DX: Z00.00 Encounter for general adult medical examination without abnormal findings (principal); R10.9 Unspecified abdominal pain; Z13.220 Encounter for screening for lipoid disorders; Z13.29 Encounter for screening for other suspected endocrine disorder; Z13.21 Encounter for screening for nutritional disorder; Z13.0 Encounter for screening for diseases of the blood and blood-forming organs and certain disorders involving the immune mechanism; Z13.6 Encounter for screening for cardiovascular disorders
CPT/HCPCS: 36415; 76700; 80053; 80061; 82306; 82607; 82746; 84443; 85025

== ENCOUNTER → 2025-09-09 09:01 | Outpatient (BNV) | payer OTHER, SELFPAY | PROVIDERS: Visit Provider Radiology Diagnostic Radiology | DX: K80.20 Calculus of gallbladder without cholecystitis without obstruction (principal); K76.0 Fatty (change of) liver, not elsewhere classified | CPT/HCPCS: 76700 ==

== ENCOUNTER 2025-09-17 14:05 | Outpatient (AMB) | payer OTHER, SELFPAY ==
[2025-09-17 14:07] VITALS: BP 182/110; PULSE 94; RESP 18; O2SAT 99; BMI 43.4
--- NOTE | 2025-09-17 14:07 | MHC.PC.OV ---
Vital Signs 09/17/25 14:07 Height 5 ft 3 in Weight 245 lb BMI 43.4 BP 182/110 H Blood Pressure Location Lt brachial Position Sitting Respiration 18 Pulse 94 Pulse Source Pulse Oximeter Temp Source Temporal Artery Scan Pulse Oximetry (%) 99 Oxygen Delivery Method Room Air Intake Visit Reasons: f/u BP Dairy Equipment Repairer Required: No Accompanied by: Self / Same As Patient Allergies No Known Allergies Allergy (Verified 09/17/25 14:08) Tobacco use date assessed: 09/17/25 Dental Screening Dental Screen Date: 09/17/25 Did you have a dental visit in the last 12 months?: No Did you have a dental problem in the last 6 months where you did not have access to dental care?: No Was dental information given to patient?: Patient has dentist HPI HPI Comments History of Present Illness Details Patient is a 35-year-old female with a history of PCOS, anxiety, hyperlipidemia and hypertension who presents for follow up chronic conditions. She was last seen on 07/19/2025 for annual physical exam and complaints of abdominal pain associated with nausea and vomiting, with suspicion for acid reflux and possible gallbladder etiology. Had abdominal ultrasound that showed hepatic steatosis, and cholelithiasis without findings of acute cholecystitis. Also found to have elevated blood pressure, she had run out of her medications for some time, restarted on nifedipine 30 mg daily. Regarding hypertension, patient does not monitor blood pressure at home. Compliant with medications daily. In regards her abdominal symptoms, patient feels better, occasionally would feel nauseous. [facility] Surgical History S/P tonsillectomy H/O knee surgery Family History Other Mental health disorder Social History Housing: Other Housing Other:: Hotel Patient Tobacco Use Status: Never used Tobacco Tobacco use type: Cigarette e-Cigarette/Vaping Use: Never Used Second Hand Smoke Exposure: Yes service: No Current occupational status: unemployed Cognitive needs: No Hearing needs: No Vision needs: Yes Questionnaire Thrive Questionnaire Date Thrive assessed: 09/17/25 I am a: Patient What is your living situation today?: I have a steady place to live Within the past 12 months, did the food you bought not last and you didn't have the money to get more?: Never true Within the past 12 months, did you worry whether your food would run out before you got money to buy more?: Never true Do you have trouble paying for medicines?: No Do you have trouble getting transportation to medical appointments?: No Do you have trouble paying your heating and electricity bill?: No Do you have trouble taking care of your child, family member or friend?: No Do you have trouble with day-to-day activities such as bathing, preparing meals, shopping, managing finances, etc.?: No Are you currently unemployed and looking for a job?: No Are you interested in more education?: No Please select the resources that you would like help with: None Currently or been in a relationship where the following occur: No concerns reported THRIVE Score: 0 CARLOS-7 AMB Questionnaire CARLOS-7 Date CARLOS - 7 assessed: 07/19/25 Source: Developed by Drs. Kaushik Pina, Phyllis Lilly, Andres Chinchilla and colleagues, with an educational leanna from [employer]. Physical exam (Primary Care) Vital Signs: Last Vital Signs Pulse 94 09/17/25 14:07 Resp 18 09/17/25 14:07 BP 182/110 H 09/17/25 14:07 Pulse Ox 99 09/17/25 14:07 Oxygen Delivery Method Room Air 09/17/25 14:07 General: Well-appearing, alert, oriented ?3, in no acute distress. Cardiovascular: RRR, S1-S2 appreciated, no murmurs, rubs or gallops. Respiratory: Lungs clear to auscultation bilaterally, no wheezes, rales or rhonchi. Abdomen: Soft, nontender, nondistended. Normoactive bowel sounds. BMI result Body Mass Index 43.4 Tobacco/Smoking Status: Tobacco use Status Tobacco use date assessed 09/17/25 09/17/25 14:16 Patient Tobacco Use Status Never used Tobacco 09/17/25 14:16 Tobacco use type Cigarette 09/17/25 14:16 e-Cigarette/Vaping Use Never Used 09/17/25 14:16 Thrive Assessment: Date of Thrive Assessment Date Thrive assessed 09/17/25 09/17/25 14:16 Currently or been in a relationship where the following occur: No concerns reported Coding Level of Care Code Est Pt Level 4 (77420) Diagnoses Hypertension, unspecified type I10 Hypertension type: unspecified Hyperlipidemia, unspecified hyperlipidemia type E78.5 Hyperlipidemia type: unspecified Hepatic steatosis K76.0 Calculus of gallbladder without cholecystitis without obstruction K80.20 Cholelithiasis location: gallbladder Cholecystitis presence: without cholecystitis Biliary obstruction: without biliary obstruction Assessment & Plan Assessment & Plan (1) Hypertension: Code(s): I10 - Essential (primary) hypertension Category: Medical Qualifiers: Hypertension type: unspecified Qualified Code(s): I10 - Essential (primary) hypertension Plan: Patient with history of hypertension, has ran out of medication for some time. Restarted on nifedipine 30 mg during her previous visit in June 2025. Does not monitor blood pressure at home. Blood pressure today in office significantly elevated 182/110, on repeat 160/100. Denies any chest pain, palpitation or shortness of breath. Plan - increase nifedipine to 60 mg daily - further workup with aldosterone, renin, catecholamines and renal ultrasound Doppler - advised to monitor blood pressure at home, measure twice daily, keep a log and follow up in 3-4 weeks with her PCP - patient educated about low-salt DASH diet (2) Hyperlipidemia: Code(s): E78.5 - Hyperlipidemia, unspecified Category: Medical Qualifiers: Hyperlipidemia type: unspecified Qualified Code(s): E78.5 - Hyperlipidemia, unspecified Plan: Recent lab work revealed hyperlipidemia, with a total cholesterol of 220, LDL of 156, and low HDL. Patient extensively counseled on dietary changes, including reducing intake of fatty food, fried food, red meat, saturated and trans fats, and carbohydrates, as well as increasing fiber intake. Also encouraged to start regular exercise routine Repeat blood work in 3 months to monitor (3) Hepatic steatosis: Code(s): K76.0 - Fatty (change of) liver, not elsewhere classified Category: Medical Plan: An abdominal ultrasound from 09/10/2025 showed fatty liver, which corresponds with a mildly elevated liver enzyme. Patient educated about diet and exercise. Repeat blood work in 3 months to monitor (4) Cholelithiasis: Code(s): K80.20 - Calculus of gallbladder without cholecystitis without obstruction Category: Medical Qualifiers: Cholelithiasis location: gallbladder Cholecystitis presence: without cholecystitis Biliary obstruction: without biliary obstruction Qualified Code(s): K80.20 - Calculus of gallbladder without cholecystitis without obstruction Plan: Patient had previously presented with symptoms of abdominal pain associated with nausea and vomiting, had abdominal ultrasound that showed cholelithiasis without findings of acute cholecystitis. Patient feels better today, symptoms occur occasionally with nausea. We will continue to monitor at this time. If symptoms worsen or increase in frequency, will need surgical evaluation. Also, patient advised if at any point she develops severe abdominal pain or fevers to present to the emergency department. Orders: Orders Aldost/Renin Today I10 - Essential (primary) hypertension Catecholamines, Frac., Plasma Today I10 - Essential (primary) hypertension Aldosterone Today I10 - Essential (primary) hypertension Renin Today I10 - Essential (primary) hypertension US renal doppler Today I10 - Essential (primary) hypertension US renal BI Today I10 - Essential (primary) hypertension Medications: New nifedipine ER 60 mg PO DAILY 90 tabs 0RF Discontinued nifedipine ER Discontinued Reason: Ancillary Entered New Order 30 mg PO DAILY 90 tabs 0RF
== END 2025-09-17 14:49 | disposition home or self-care (01) ==
LOC: HO.HMCH 14:06
PROVIDERS: Visit Provider Student in an Organized Health Care Education/Training Program
DX: I10 Essential (primary) hypertension (principal); E78.5 Hyperlipidemia, unspecified; K76.0 Fatty (change of) liver, not elsewhere classified; K80.20 Calculus of gallbladder without cholecystitis without obstruction

== ENCOUNTER → 2025-09-17 14:05 | Outpatient (BNVA) | payer OTHER, SELFPAY | PROVIDERS: Visit Provider Student in an Organized Health Care Education/Training Program | DX: I10 Essential (primary) hypertension (principal); E78.5 Hyperlipidemia, unspecified; K80.20 Calculus of gallbladder without cholecystitis without obstruction; K76.0 Fatty (change of) liver, not elsewhere classified; Z79.899 Other long term (current) drug therapy | CPT/HCPCS: 99212 ==